=== PATIENT | female | born 1955 | race American Indian/Alaskan Native ===

== ENCOUNTER 2019-07-08 06:02 | Day surgery (SDC) | payer BC, MEDICARE ==
--- NOTE | 2019-07-07 04:25 | History and Physical Report ---
History of Present Illness Date of examination: 07/04/19 Date of admission: 07/08/19 Chief complaint: post menopausal bleeding History of present illness: Visit Type: Pre-Op CC: pre op. History of Present Illness: pt presents for Pre op visit.....................................................................Fatmata Panda July 04, 2019 1:46 PM Pt states she has been in menopause since age 51 with no bleeding but now staes in February and March of 2019 she had vaginal bleeding. In February staers she had heavy bleeding for one day and it was dark red blood. In March ste she has normal bleeding with bright red blood for 5-6 days with clotting. Staes no bleeding in April. She staes she also had menstrual cramping as she use to have with menses with second episode of bleeding. Pt states she has never had a colonoscopy but has had annual paps most recent was in 2018 with ELFP and was states to be normal. States she has had normal mammograms also. No previous episodes of postmenopausal bleeding. Bleeding was noted to be heavy as well with soiling of clothing noted on one episode. She has had SIS with embx that showed a 2cm endometrial mass and bx findings c/w endometrial polyp " no hyperplasia or carcinoma." Pt here for pre op for hysteroscopy with myosure removal of endometrial mass. All risk/benefits/alternatives were d/w pt and questions were addressed and answered. Consents have been singed and placed on the chart. Pt did obtain medical clearance from PCP. 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 of genital herpes: no Partner hx. of genital herpes: no Hx of STD: None Active Medications (reviewed today): MULTI VITAMINS () BENADRYL () Current Allergies (reviewed today): No known allergies Past Medical History: Reviewed history from 06/02/2019 and no changes required: Allergies ?asthma-hs Past Surgical History: positive Tubal Ligation Family History Summary: Reviewed history and no changes required: 07/07/2019 General Comments - FH: DM Asthma Social History: Reviewed history from 05/27/2019 and no changes required: Patient is Smoking History: Patient has never smoked. related to Below family in [place], [place] no E/T/D Risk Factors: Smoked Tobacco Use: Never smoker Smokeless Tobacco Use: Never Drug use: no Alcohol use: no Exercise: yes Seatbelt use: 100 % PAP Smear History: Date of Last PAP Smear: 05/27/2019 [[facility]] [Labs In-House] Physical Exam Appearance: well developed, well nourished, no acute distress Other Exams Lungs: no rales, rhonchi, or wheezes Heart: S1, S2, no murmur, rub, or gallop Abdomen: soft, non-tender, no masses, bowel sounds normal Extremities: normal alignment, no joint enlargement, crepitus, masses or tenderness; normal tone and strength Genitourinary Exam Comments: deferred until EUA [[facility]] Impression & Recommendations: Problem # 1: Postmenopausal Bleeding (ICD-627.1) (LVC21-O63.0) Orders: Ofc Vst Est 41218 ([id number]) All risk/benefits/alternatives were d/w pt and questions were addressed and answered. 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: abnormal PAP smear Social history: no significant social history, Medications and Allergies Allergies Allergy/AdvReac Type Severity Reaction Status Date / Time No Known Allergies Allergy Unverified 06/30/19 12:54 Home Medications Medication Instructions Recorded Confirmed Last Taken Type Acetaminophen [Tylenol] 650 mg PO Q6H PRN 06/30/19 06/30/19 Unknown History diphenhydrAMINE [Benadryl CAP] 25 mg PO Q8HR PRN 06/30/19 06/30/19 Unknown History Review of Systems All systems: negative - Physical Exam Cardiovascular: Normal S1, Normal S2 Lungs: Positive: Clear to auscultation, Normal air movement Abdomen: Positive: normal appearance, soft. Negative: distention, tenderness, guarding Genitourinary (Female): Positive: other (deferred until EUA previously normal) Extremities: Positive: normal. Negative: tenderness, edema Deep Tendon Reflex Grade: Normal +2 Results All other labs normal. Assessment and Plan - Patient Problems (1) Postmenopausal bleeding Status: Acute Plan to address problem: - to OR for above stated procedure -consents signed and placed on the chart -all risk, benefits and alternatives were d/w pt and questions were addressed and answered. (2) Endometrial mass Status: Acute Plan to address problem: - to OR for above stated procedure -consents signed and placed on the chart -all risk, benefits and alternatives were d/w pt and questions were addressed and answered.
[~2019-07-08 06:02] MED LIST: ANCEF/STERILE WATER 2 GM/20 ML 2 GM/20 ML SYRINGE IV NR; LACTATED RINGERS 1,000 ML IV SCH; VERSED IV NR
[2019-07-08] MEDS ORDERED: SUBLIMAZE ONE (07:30)
[2019-07-08] MEDS ORDERED: ANCEF/STERILE WATER 2 GM/20 ML IV NR (07:30)
[2019-07-08] MEDS ORDERED: DIPRIVAN 10 MG/ML IV ONE (07:30)
[2019-07-08] MEDS ORDERED: XYLOCAINE MPF 2% ONE (07:31)
[2019-07-08] MEDS ORDERED: SUBLIMAZE IV PRN (07:34)
--- NOTE | 2019-07-08 07:34 | Anesthesia Consultation ---
Anesthesia Consult and Med Hx Date of service: 07/08/19 - Airway Anesthetic Teeth Evaluation: Good ROM Head & Neck: Adequate Mental/Hyoid Distance: Adequate Mallampati Class: Class II Intubation Access Assessment: Probably Good - Pulmonary Exam CTA: Yes - Cardiac Exam Cardiac Exam: RRR - Pre-Operative Health Status ASA Pre-Surgery Classification: ASA2 Proposed Anesthetic Plan: General - Pulmonary Hx Smoking: No Hx Respiratory Symptoms: Yes (cough 2/2 GERD) - Cardiovascular System Hx Hypertension: No Hx Heart Attack/AMI: No - Central Nervous System CVA: No - Gastrointestinal Hx Gastroesophageal Reflux Disease: Yes - Endocrine Hx Renal Disease: No Hx Liver Disease: No Hx Insulin Dependent Diabetes: No Hx Non-Insulin Dependent Diabetes: Yes (pre-DM) Hx Thyroid Disease: No - Other Systems Hx Obesity: Yes
--- NOTE | 2019-07-08 07:34 | Anesthesia Day of Surgery ---
Anesthesia Day of Surgery - Day of Surgery Patient Examined: Yes Patient H&P Reviewed: Yes Patient is NPO: Yes
[2019-07-08] MEDS ORDERED: PEPCID IV ONE (07:38)
[2019-07-08] MEDS ORDERED: DECADRON ONE (08:02)
[2019-07-08] MEDS ORDERED: ZOFRAN ONE (08:02)
[2019-07-08] MEDS ORDERED: TORADOL ONE (08:24)
--- NOTE | 2019-07-08 08:30 | Short Stay Summary ---
Short Stay Documentation Date of service: 07/08/19 - History H&P: dictated Social history: no significant social history, - Allergies and Medications Current Medications: Allergies No Known Allergies Allergy (Unverified 06/30/19 12:54) Home Medications Medication Instructions Recorded Confirmed Last Taken Type Acetaminophen [Tylenol] 650 mg PO Q6H PRN 06/30/19 06/30/19 Unknown History diphenhydrAMINE [Benadryl CAP] 25 mg PO Q8HR PRN 06/30/19 06/30/19 Unknown History Active Medications Cefazolin Sodium (Ancef/Sterile Water 2 Gm/20 Ml) 2 gm IV PREOP NR Stop: 07/08/19 23:59 Fentanyl (Sublimaze) 50 mcg IV Q5MIN PRN PRN Reason: Pain , Severe (7-10) Stop: 07/08/19 23:00 Lactated Ringer's (Lactated Ringers) 1,000 mls @ 100 mls/hr IV DIRECT THALIA Last Admin: 07/08/19 06:50 Dose: 100 mls/hr Documented by: Midazolam HCl (Versed) 2 mg IV PREOP NR Stop: 07/08/19 23:00 Last Admin: 07/08/19 07:30 Dose: Not Given Documented by: - Brief post op/procedure progress note Date of procedure: 07/08/19 Pre-op diagnosis: post menopausal bleeding; endometrial mass Post-op diagnosis: same Procedure: Diagnostic hysteroscopy Myosure Anesthesia: GETA Findings: See operative report Surgeon: SHON LOMAS Estimated blood loss: minimal Pathology: list (Nichole mass and tissue) Specimen disposition: to lab Condition: stable - Hospital course Hospital course: Is was made for above-stated procedure. Procedure was uncomplicated. Patient was taken to the recovery room in stable condition and awake. Patient was discharged home when she has met discharge criteria in the PACU. - Disposition Condition at discharge: Good Disposition: DC-01 TO HOME OR SELFCARE - Discharge Diagnoses (1) Postmenopausal bleeding Status: Acute (2) Endometrial mass Status: Acute Short Stay Discharge Plan Activity: no restrictions Diet: regular Follow up with: CONCEPCION HUIZAR MD [Primary Care Provider] - 7 Days Prescriptions: Ibuprofen [Motrin 800 MG tab] 800 mg PO Q8HR PRN #30 tablet PRN Reason: Pain, Moderate (4-6)
--- NOTE | 2019-07-08 08:30 | Operative Report ---
Operative Report Operative Report: Date of procedure: 07/08/2019 Pre-operative diagnosis: Postmenopausal bleeding Nichole mass Post-operative diagnosis: Same Procedure name(s): Hysteroscopy Myosure Surgeon: Dr. Gonzáles Long Line Teamster: Certified surgical scrub plastic surgery assistant Anesthesia: Gen. endotracheal anesthesia EBL: Minimal Urine output: Slowly 50 mL of urine out via straight catheterization prior to the onset of the procedure Fluids: 550 mL Findings: Endometrial mass noted as well as some thickness of the endometrium. Otherwise normal uterus normal cervix normal vagina. Indications: A she presents with several months of spontaneous postmenopausal bleeding that was heavy at times. Patient underwent saline infused sonogram that showed an endometrial mass. Patient was consented for above-stated procedure. All risks benefits and alternatives were discussed with the patient. Consents were signed and placed on the chart. Procedure: Patient was taken to the operating room where she was placed under general anesthesia. She was placed in dorsal lithotomy position with legs in Spencer stirrups. She was then prepped and draped in sterile fashion. Her catheterization was performed. The anterior lip of the cervix was grasped with a tenaculum and the uterus was sounded to approximately 8 cm. As at this point that the cervix was dilated to allow the passage of a Myosure hysteroscope. Endometrial mass as well as endometrial tissue was removed via the Catracho device. Uterine cavity was noted to have a smooth appearance after completion of the Catracho.. Hemostasis was noted to be excellent. Patient was taken to the recovery room awake and in stable condition. Patient was given Ancef prior to the onset of the procedure. All laps and needle counts were correct. Patient tolerated the procedure well.
[2019-07-08] MEDS ORDERED: IBUPROFEN PO PRN (08:58)
[2019-07-08 09:42] VITALS: BP 134/78
--- NOTE | 2019-07-08 11:10 | Post Anesthesia Evaluation ---
- Post Anesthesia Evaluation Patient Participated: Yes Airway Patent: Yes Stable Respiratory Function: Yes Nausea/Vomiting: No Temp > 96.8F: Yes Pain Manageable: Yes Adequeate Hydration: Yes Anesthesia Complications: No
== END 2019-07-08 06:03 | disposition home or self-care (01) ==
LOC: OR 06:02
PROVIDERS: ATTEND Obstetrics & Gynecology
DX: N95.0 Postmenopausal bleeding (principal); N94.89 Other specified conditions associated with female genital organs and menstrual cycle; K21.9 Gastro-esophageal reflux disease without esophagitis; E66.9 Obesity, unspecified; E11.9 Type 2 diabetes mellitus without complications; F32.9 Major depressive disorder, single episode, unspecified; F41.9 Anxiety disorder, unspecified; Z98.890 Other specified postprocedural states; Z79.899 Other long term (current) drug therapy
CPT/HCPCS: 58558; 88305; C1782; J0690; J1100; J1885; J2405; J2704; J3010; J7120; J2250